=== PATIENT | female | born 1965 | race Caucasian/White ===

== ENCOUNTER → 2018-12-12 | Outpatient (CLI) | payer BC ==
[~2018-12-12] MED LIST: REGADENOSON 0.4 MG/5 ML DISP.SYRIN. IV ONE
--- NOTE | 2018-12-12 12:44 | PCVCIMAG ---
APPROVED REPORT Study performed: 12/12/2018 08:03:10 EXAM: Comprehensive 2D, Doppler, and color-flow Echocardiogram Patient Location: Echo lab Room #: 2Status: routine BSA: 1.75 HR: 58 bpmBP: 106/76 mmHg Rhythm: Bradycardia Other Information Study Quality: Good Risk Factors: Cardiac Risk Factors: Dyslipidemia Indications Palpitations 2D Dimensions IVSd: 6.28 (7-11mm)LVOT Diam: 19.33 (18-24mm) LVDd: 39.31 mm PWd: 7.71 (7-11mm)Ascending Ao: 28.78 (22-36mm) LVDs: 26.59 (25-40mm) Left Atrium: 28.56 (27-40mm) Aortic Root: 21.65 mm LV Single Plane 4CH: 59.30 % LV Single Plane 2CH: 69.03 % Biplane EF: 64.7 % Volumes Left Atrial Volume (Systole) Single Plane 4CH: 35.34 mLSingle Plane 2CH: 26.13 mL Biplane LA Volume: 31.00 mLLA ESV Index: 17.00 mL/m2 Aortic Valve AoV Peak Raheem.: 1.43 m/s AO Peak Gr.: 8.89 mmHgLVOT Max P.84 mmHg LVOT Max V: 0.95 m/s JEANNINE Vmax: 1.95 cm2 Mitral Valve E/A Ratio: 1.4 MV Decel. Time: 146.76 ms MV E Max Raheem.: 0.81 m/s MV A Raheem.: 0.56 m/s IVRT: 79.58 ms TDI E/Lateral E': 5.40E/Medial E': 6.23 Medial E' Raheem.: 0.13 m/s Lateral E' Raheem.: 0.15 m/s Pulmonary Valve PV Peak Raheem.: 0.70 m/sPV Peak Gr.: 1.94 mmHg Pulmonary Vein P Vein S: 0.51 m/sP Vein A: 0.30 m/s P Vein D: 0.56 m/sP Vein A Dur.: 86.5 msec P Vein S/D Ratio: 0.91 Tricuspid Valve TR Peak Raheem.: 2.14 m/s TR Peak Gr.: 18.28 mmHg TV Vmax: 0.60 m/s Left Ventricle The left ventricle is normal size. There is normal LV segmental wall motion. There is normal left ventricular wall thickness. Left ventricular systolic function is normal. The left ventricular ejection fraction is within the normal range. LVEF is 60-65%. The left ventricular diastolic function is normal. Right Ventricle The right ventricle is normal size. The right ventricular systolic function is normal. Atria The left atrium size is normal. The right atrium size is normal. Aortic Valve Aortic valve is trileaflet. The aortic valve is normal in structure and function. No aortic regurgitation is present. There is no aortic valvular stenosis. Mitral Valve The mitral valve is normal in structure. There is no mitral valve regurgitation noted. No evidence of mitral valve stenosis. Tricuspid Valve The tricuspid valve is normal in structure. Trace to mild tricuspid regurgitation with a PA pressure of 25 mmHg. No pulmonary hypertension. Pulmonic Valve The pulmonary valve is normal in structure. Trace pulmonic regurgitation. Great Vessels The aortic root is normal in size. The ascending aorta is normal in size. Aortic arch is normal in caliber. IVC is normal in size and collapses >50% with inspiration. Pericardium There is no pericardial effusion. There is no pleural effusion. <Conclusion> The left ventricle is normal size. LVEF is 60-65%. Aortic valve is trileaflet. The aortic valve is normal in structure and function. The mitral valve is normal in structure. The tricuspid valve is normal in structure. Trace to mild tricuspid regurgitation with a PA pressure of 25 mmHg. No pulmonary hypertension. The pulmonary valve is normal in structure. Trace pulmonic regurgitation. There is no pericardial effusion.
--- NOTE | 2018-12-12 13:07 | PCVCIMAG ---
APPROVED REPORT Imaging Protocol: Rest Tc-99m/Stress Tc-99m 1 day Study performed: 12/12/2018 08:56:05 Indication: Palpitations Patient Location: Out-Patient Stress Nurse: Chiara Ramirez RN, CHAGO Boyer Tech:Timur Blevins NMBARRYB Ht: 5 ft 0 in Wt: 150 lbs BSA: 1.65 m2 HR: 83 bpm BP: 127/83 mmHg BMI: 29.2 Rhythm: Normal Sinus Rhythm, Prolonged QT Medical History Medical History: Hyperlipidemia, Raymaud Syndrome Medications: No cardiac meds Allergies: Aleve, Lansoprazole, Omeprazole Pretest Chest Pain Characteristics: No chest pain Exercise History: Physically active Resting Data Rest SPECT myocardial perfusion imaging was performed in supine position 45 minutes following the intravenous injection of 12 mCi of Tc-99m Sestamibi. Time of rest injection: 0845 Date: 12/12/2018 Administration Route: IV Administration Site: Right AC Pharmacologic Stress Pharmacologic stress test was performed by injecting Regadenoson 0.4 mg IV push over 10-15 seconds immediately followed by the intravenous injection of 32.8 mCi of Tc-99m Sestamibi. Time of stress injection: 1005 Date: 12/12/2018 Administration Route: IV Administration Site: Right AC Gated Stress SPECT was performed 45 minutes after stress injection. The images were gated to evaluate regional wall motion and calculate left ventricular ejection fraction. Stress Test Details Stress Test: Pharmacologic stress was paired with low level exercise. Reason for pharmacologic stress test: Raymauds feet. HRMax Heart Rate (APMHR): 167 bpm Resting HR: 83 bpmTarget HR (85% APMHR): 141 bpm Max HR Achieved: 133 bpm % of APMHR: 79 Recovery HR: 96 bpm BP Resting BP: 127/83 mmHg Max BP: 114/68 mmHg Recovery BP: 121/68 mmHg ECG Resting ECG: Sinus Rhythm, Prolonged QT Stress ECG: Sinus tachycardia Arrhythmia: None Recovery ECG: Sinus Rhythm Clinical Reason for Termination: Completed protocol Stress Symptoms: Lightheaded, Chest heaviness Exercise duration: 4 min 00 sec Symptoms resolved with caffeine. Stress ECG Conclusion 1. Adequate response to intravenous Lexiscan 2. Inadequate heart rate for ECG diagnosis Study Data Post stress, the left ventricular ejection was 90%.. SSS: 0 SRS: 1 SDS: 0 TID = 1.17. Perfusion There is a small area of mildly reduced uptake in the apical segment of the anterior wall which is seen on the stress images as well as the resting images. This area thickens and moves normallythickens and moves normally and is most consistent with attenuation artifact. Nuclear Conclusion ECG Findings: non-diagnostic Clinical Findings: negative for ischemia Nuclear Findings: negative for ischemia Exercise Capacity: not assessed Left Ventricular Function: normal 1. Low risk study 2. Post-rest left ventricular ejection fraction of 90% with normal contractility Interpreted by: Conchita Ibrahim MD Electronically Approved: 12/12/2018 13:06:39 <Conclusion> 1. Adequate response to intravenous Lexiscan 2. Inadequate heart rate for ECG diagnosis
== END | disposition home or self-care (01) ==
LOC: PCVCIMAG 08:00
PROVIDERS: ATTEND Internal Medicine
DX: R00.2 Palpitations (principal)
CPT/HCPCS: 78452; 93017; 93306; A9500; J2785